=== PATIENT | female | born 1980 | race Asian ===

== ENCOUNTER 2020-08-06 06:04 | Inpatient (IN) | payer BC ==
[~2020-08-06] VITALS: Ht 154.9 cm; Wt 86.8 kg
[2020-08-14 20:30] VITALS: BP 122/68; PULSE 71; TEMP 98.5
[2020-08-14 21:30] VITALS: BP 126/61; PULSE 80; TEMP 98
[2020-08-14 21:56] LABS: BASO % 0.3 % (0.0-2.0); EOS # 0.1 (0.0-0.7); EOS % 0.5 % (0-4.0); GRAN # 8.5 (1.4-6.5); GRAN % 77.4 % (42.2-75.2); HEMATOCRIT 37.4 % (37.0-47.0); HEMOGLOBIN 12.2 g/dl (12.5-16.0); LYMPH # 1.6 (1.2-3.4); LYMPH % 14.1 % (20.0-51.0); MEAN CELL VOLUME 84 fl (80.0-100.0); MEAN CORPUSCULAR HEMOGLOBIN 27 pg (27.0-31.0); MEAN CORPUSCULAR HGB CONC 33 g/dl (33.0-37.0); MEAN PLATELET VOLUME 10.4 fl (7.4-10.4); MONO # 0.8 (0.1-0.6); PLATELET COUNT 299 K/mm3 (130-400); RED BLOOD COUNT 4.48 M/mm3 (4.10-5.30); REDCELL DISTRIBUTION WIDTH-CV 13.9 % (11.5-14.5)
[2020-08-14 22:30] VITALS: TEMP 98.2
[2020-08-14 23:00] VITALS: BP 121/68; PULSE 63
--- NOTE | 2020-08-14 23:56 | NUR ---
IRREGULAR CONTRACTIONS GRAPHED
[2020-08-15] VITALS (67 sets, daily range): BP systolic 97–148; BP diastolic 45–85; PULSE 48–89; TEMP 98–101.1
--- NOTE | 2020-08-15 03:12 | NUR ---
UNABLE TO TRACE CONTRACTIONS ON MONITOR. PALPATION OF UTERUS IS MILD AND CONTRACTIONS ARE INTERMITTENT. UTERUS SOFT BETWEEN CONTRACTIONS
--- NOTE | 2020-08-15 05:43 | NUR ---
PATIENT UP TO RESTROOM. LA AT BEDSIDE FOR EPIDURAL. THIS NURSE IS HOLDING MONITOR FOR HEART TONES
--- NOTE | 2020-08-15 05:52 | NUR ---
PATIENT SITTING ON EDGE OF BED DURING EPIDURAL. DIFFICULTY TRACING HEART TONES. THIS NURSE HOLDING MONITOR AT BEDSIDE. HEARTTONES OF 145 CHARTED
--- NOTE | 2020-08-15 06:20 | NUR ---
0620-Recieved report from KarisRN at desk. EFM with variable and late decels with quick return to baseline tracing at [id number]. Patient recently dosed with epidural per night nurse. IVF infusing. LR bag number two up at this time. Maternal BP 100/53 HR 53. TANNER Johnson on unit reviewed patient VSS and need for ephedrine. ASBESTOS PIPE SUPERVISOR agrees 10mg ephedrine administered at 0625 per protocl, see EMAR. Patient updated on plan of care. 0640-Maternal BP 118/58 HR 56 0700-Guzman to dependant drainage, clear yellow urine return. SVE at this time 3/70/-2, BOWI. Bloody show noted. Ekaterina care provided. Repositioned RL and adjusted EFM. Pitocin remains at 16mu/min at this time.
--- NOTE | 2020-08-15 09:50 | NUR ---
0950-SVE by Dr. Shankar with moderate amount of bloody show. loss in FHR tracing with exam, replaced EFM, FHR decel with spontaneous return to baseline. Repositioned RL and changed FSE patch. Resumed tracing via FSE. Orders to keep pit at 10mu and continue to monitor.
--- NOTE | 2020-08-15 12:08 | NUR ---
Dr. Shankar at bedside. Reviewd FHR monitor. MD reports he will check cervix after getting done with procedure in OR. Patient LL w/ PB and comfortable with epidural. Reports having used GRAPHIC USER INTERFACE DESIGNER button twice.
--- NOTE | 2020-08-15 14:15 | NUR ---
1415-FHR baseline increasing to 155-160bpm. SVE by this RN confirmed by hot car charger Laisha,RN /+1, Patient practiced pushing and moves vertex minmimally. Encouarged and educated on pushing efforts. Maternal oral temp now 100.8. Dr. Shankar upsated on SVE, temp, and FHR tachycardia. Orders for Ancef 2G now and Q6 hours,see EMAR. Order for 1GM tylenol, see EMAR. 1510-Dr. Shankar updated on patients pushing efforts. Patient moving Vertex minimally and FHR baseline increasing to 160-170bpm. Dr. Shankar reports he will pull up FHR strip at home. 1520-Dr. Shankar notifies this RN that he is watching strip. Notified MD patient Contiues to have increasing baseline in FHR now 180's and Deep decels following pushing efforts down to 90bpm. 1535-Dr. Shankar on unit. Patient now has oral temp of 101.1. SVE by MD. Patient begins pushing with Dr. Shankar. Vertex with small amounts of movement. Large amount of thick red tinged fluid with pushing. 1545-Dr. Shankar and patient discussed delivery options and patient agrees to go back for c/s. 1558-Patient off EFM to OR via bed.
--- NOTE | 2020-08-15 17:20 | NUR ---
1720-Patient to PACU via bed. A&O x4. Easly able to move BLE, Reports minimal pain, fundal massage firm, Lochia small to moderate, no clots. Binder to abdomen. Dressing C/D/I. Recieved report from TANNER Johnson
--- NOTE | 2020-08-15 22:15 | NUR ---
RN ASSISTED PATIENT TO RESTROOM. DORANTES REMOVED. EPIDURAL CATH REMOVED. PERICARE PROVIDED. MESH PANTIES, CLEAN GOWN, CLEAN BED PAD PROVIDED. PATIENT ASSISTED BACK TO BED. TOLERATED AMBULATION WELL. VERBALIZED UNDERSTANDING TO MEASURE 3 VOIDS AND TO CALL OUT FOR ASSISTANCE WITH RESTROOM NEEDED.
[2020-08-16 04:37] VITALS: BP 94/46; PULSE 84; TEMP 98.8
[2020-08-16 08:15] VITALS: BP 108/68; PULSE 76; TEMP 98.2
[2020-08-16 14:07] LABS: MEAN CELL VOLUME 85 fl (80.0-100.0); MEAN CORPUSCULAR HGB CONC 33 g/dl (33.0-37.0); MEAN PLATELET VOLUME 10.3 fl (7.4-10.4); PLATELET COUNT 228 K/mm3 (130-400); RED BLOOD COUNT 3.17 M/mm3 (4.10-5.30); REDCELL DISTRIBUTION WIDTH-CV 13.9 % (11.5-14.5)
[2020-08-16 14:13] LABS: HEMATOCRIT 26.8 % (37.0-47.0); HEMOGLOBIN 8.7 g/dl (12.5-16.0); MEAN CORPUSCULAR HEMOGLOBIN 27 pg (27.0-31.0)
[2020-08-16 16:01] VITALS: BP 118/68; PULSE 76; TEMP 98.1
[2020-08-16 21:26] VITALS: BP 109/42; PULSE 83; TEMP 98.8
[2020-08-17] MEDS ORDERED: MOTRIN 600600 MG/TAB PO (07:21)
[2020-08-17] MEDS ORDERED: PERCOCET 325 MG1 TA2 PO (07:22)
[2020-08-17 08:11] VITALS: BP 103/52; PULSE 82; TEMP 97.9
[2020-08-17 17:46] VITALS: BP 121/59; PULSE 81; TEMP 98.3
--- NOTE | 2020-08-17 18:40 | NUR ---
1840- PT DISMISSED TO HOME AMBULATORY ACCOMPANIED BY SPOUSE. BABY AND BELONGINGS SENT WITH PT.
== END 2020-08-17 18:40 | disposition home or self-care (01) | DRG 786 ==
LOC: OB 06:04 → LDR 08-14 19:17 → OB 08-15 18:00
PROVIDERS: Obstetrics & Gynecology; Student in an Organized Health Care Education/Training Program; ADMIT Obstetrics & Gynecology
PROC: 10D00Z1 Extraction of Products of Conception, Low, Open Approach (ICD-10-PCS; principal; 2020-08-14)
PROC: 3E0P7VZ Introduction of Hormone into Female Reproductive, Via Natural or Artificial Opening (ICD-10-PCS; 2020-08-14)
PROC: 3E033VJ Introduction of Other Hormone into Peripheral Vein, Percutaneous Approach (ICD-10-PCS; 2020-08-14)
DX: O48.0 Post-term pregnancy (principal); O41.1230 Chorioamnionitis, third trimester, not applicable or unspecified; Z3A.40 40 weeks gestation of pregnancy; Z37.0 Single live birth; O34.13 Maternal care for benign tumor of corpus uteri, third trimester; O62.1 Secondary uterine inertia; O99.02 Anemia complicating childbirth; D64.9 Anemia, unspecified
CPT/HCPCS: J0690; J1200; J1885; J2210; J2405; J2590; J7120

== ENCOUNTER → 2020-08-11 | Outpatient (CLI) | payer BC ==
[~2020-08-11] MED LIST: MOTRIN 600600 MG/TAB PO; PERCOCET 325 MG1 TA2 PO
== END ==
LOC: ZCOL.LAB
DX: Z20.822 Contact with and (suspected) exposure to COVID-19 (principal)

== ENCOUNTER → 2020-08-31 | Outpatient (CLI) | payer BC ==
--- NOTE | 2020-08-31 13:38 | NUR ---
Pt, Valerie Ambrocio, presents for outpatient consult with 16 day old baby boy Pedro Ambrocio, and her spouse, Kimani. Pedro was born on [birth year] by c/section and weighed 8#5.3oz (3780 gms). Discharge weight was 7#12oz (3510 gms). At his doctor appt on 08/18/20 he weighed 7#3oz. He was admitted for 12% wt loss. Discharge weight on 08/21/20 was 7#11oz. He was seen by Dr. Pearce on 08/24/20 amd weighed 7#14oz. Today Pedro weighs 8#4.4 (3754 gms). Pt reports Pedro is eating 8 times daily. In the last 2 days she has been a little more often but generally he is fed about 50ml EBM or formula by bottle even if he does breastfeed. Pt is using the breastpump ~6 times per 24 hours, and over the last two days has started collecting more than he is taking by bottle. After today Pedro had a gain of 90 gms (3.2oz). Pt is advised to breastfeed ad charis, discontinue supplement unless he has a poor feeding, expect more frequent breastfeedings since he has been getting EBM by bottle even after . POC: Breastfeed ad charis, as noted above. F/U: September 03 @ 1300. Questions invited and answered.
== END ==
LOC: LAC 06:46
DX: Z39.1 Encounter for care and examination of lactating mother (principal); Z71.89 Other specified counseling

== ENCOUNTER → 2020-09-03 | Outpatient (CLI) | payer BC ==
--- NOTE | 2020-09-03 13:38 | NUR ---
Pt, Valerie Ambrocio presents for outpatient latctation consult with 19 day old baby boy, Pedro Ambrocio, and her spouse, Kimani. Pedro was born [birth year] and weighed 8#5.3o (3780 gms). They were seen on 08/31/20 by this LC and Pedro weighed 8#4.4oz (3754 gms). After nursing they were advised to try exclusive but supplement if Pedro did not nurse well or she was not confident he was satisfied. Today Pedro weighs 8#8.8oz (3880 gms). Pt states she has provided Pedro ~3 bottles per day of EBM or formula, volume is about 50ml each day. She states sometimes she feels it is easier to pump and bottle than breastfeed as the can take longer. After today Pedro had a weight gain of 114gms, 4.2oz. POC: Continue ad charis, and supplement or bottle fed as desired. F/U: As scheduled with Dr. Pearce on September 15 for his one month appt. Questions invited and answered.
== END ==
LOC: LAC 13:11
DX: Z39.1 Encounter for care and examination of lactating mother (principal); Z71.89 Other specified counseling